=== PATIENT | female | born 1975 | race Caucasian/White ===

== ENCOUNTER 2022-04-14 07:56 | Day surgery (SDC) | payer BC ==
[~2022-04-14 07:56] MED LIST: Lidocaine 1%/Sod Bicarbonate in NS 8.4% 1 ML Syringe IDERM PRN; Sodium Chloride 0.9% 10 ML Syringe FLUSH PRN; Sodium Chloride 0.9% 10 ML Syringe FLUSH SCH
[2022-04-14] MEDS: Lactated Ringers 1,000 ML IV SCH ×2 (08:15→12:20)
[2022-04-14] MEDS ORDERED: Bupivacaine 0.5% 30 ML SDV ONE (08:21)
[2022-04-14] MEDS ORDERED: fentaNYL 100 MCG/2 ML SDV ONE (11:04)
[2022-04-14] MEDS ORDERED: Midazolam 1 MG/ML 2 ML SDV ONE (11:05)
[2022-04-14] MEDS ORDERED: Propofol 200 MG/20 ML SDV ONE (11:05)
[2022-04-14] MEDS ORDERED: Lidocaine 1% 6 ML ONE (11:06)
[2022-04-14] MEDS ORDERED: Rocuronium 50 MG/5 ML Vial ONE (11:14)
[2022-04-14] MEDS ORDERED: Lactated Ringers 1,000 ML ONE (11:24)
[2022-04-14] MEDS ORDERED: Metoclopramide 10 MG/2 ML SDV ONE (11:27)
[2022-04-14] MEDS ORDERED: Ondansetron 4 MG/2 ML SDV ONE (11:27)
[2022-04-14] MEDS ORDERED: Ketorolac 30 MG/ML SDV ONE (11:27)
[2022-04-14] MEDS ORDERED: ceFAZolin 2 GM Vial ONE (11:29)
[2022-04-14] MEDS ORDERED: HYDROmorphone 0.5 MG/0.5 ML Syringe IVPUSH PRN (11:33)
[2022-04-14] MEDS ORDERED: fentaNYL 100 MCG/2 ML SDV IVPUSH PRN (11:33)
[2022-04-14] MEDS ORDERED: Dexamethasone 4 MG/ML 5 ML MDV ONE (11:45)
[2022-04-14] MEDS ORDERED: Sugammadex Sodium 200 MG/2 ML VIAL ONE (11:52)
[2022-04-14] MEDS ORDERED: Ondansetron 4 MG/2 ML SDV IVPUSH PRN (12:08)
[2022-04-14] MEDS ORDERED: Acetaminophen/oxyCODONE 325-5 MG Tab PO PRN (12:08)
[2022-04-14] MEDS ORDERED: Ketorolac 30 MG/ML SDV IVPUSH SCH (17:30)
[2022-04-14] MEDS ORDERED: Ibuprofen 600 MG Tab PO PRN (23:30)
== END 2022-04-14 15:13 | disposition home or self-care (01) ==
LOC: JD.SDS 07:56
PROVIDERS: ATTEND Obstetrics & Gynecology
DX: N83.202 Unspecified ovarian cyst, left side (principal); N83.8 Other noninflammatory disorders of ovary, fallopian tube and broad ligament; Z88.0 Allergy status to penicillin; Z90.49 Acquired absence of other specified parts of digestive tract; Z90.710 Acquired absence of both cervix and uterus; Z98.890 Other specified postprocedural states; Z87.891 Personal history of nicotine dependence
CPT/HCPCS: 36415; 58661; 81003; 81025; 85025; A9270; J0690; J1100; J1885; J2250; J2405; J2704; J2765; J3010; J3490; J7120; 00840